=== PATIENT | male | born 1985 | race Caucasian/White ===

== ENCOUNTER 2025-06-24 13:27 | Emergency (ER) | payer OTHER, SELFPAY | END 2025-06-24 16:19 | disposition home or self-care (01) | LOC: ERS 13:27 | DX: B34.9 Viral infection, unspecified (principal); I10 Essential (primary) hypertension; F17.220 Nicotine dependence, chewing tobacco, uncomplicated | CPT/HCPCS: 71046; 87081; 87428; 87430 ==

== ENCOUNTER 2025-06-28 05:27 | Emergency (ER) | payer OTHER ==
[2025-06-28 06:21] LABS: #Basophils 0.04 10x3/uL (0.0-0.2); #Eosinophils 0.41 10x3/uL (0.0-0.7); #Monocytes 0.78 10x3/uL (0.11-0.59); #Neutrophils 3.59 10x3/uL (1.40-6.50); %Basophils 0.6 % (0.0-1.0); %Eosinophils 6.3 % (0.0-10.0); %Lymphocytes 24.9 % (21.0-51.0); %Monocytes 12.1 % (0.0-10.0); %Neutrophils 55.6 % (42.0-75.0); Hematocrit 43.0 % (42.0-52.0); Hemoglobin 15.4 g/dL (14.0-18.0); Mean Corpuscular Hemoglobin 31.0 pg (27.0-31.0); Mean Corpuscular Volume 86.7 fL (78.0-98.0); Platelet Count 212 10x3/uL (130-400); Red Blood Cell (RBC) Count 4.96 mill/uL (4.70-6.10); White Blood Cell (WBC) Count 6.46 10x3/uL (4.8-10.8)
[2025-06-28 06:40] LABS: ALT (SGPT) 159 U/L (Less than 45); AST (SGOT) 93 U/L (11-34); Albumin 4.4 g/dL (3.1-4.5); Alkaline Phosphatase 104 U/L (40-110); Anion Gap 15 mmol/L (10-20); BUN (Urea Nitrogen) 12 mg/dL (8.9-20.6); Bilirubin, Total 0.4 mg/dL (0.3-1.2); Calc. Creatinine Clearance 0 mL/min (70-130); Calcium 10.5 mg/dL (7.8-10.44); Carbon Dioxide 24 mmol/L (22-29); Chloride 101 mmol/L (98-107); Globulin 3.6 g/dL (2.4-3.5); Glucose 109 mg/dL (70-105); Potassium 3.8 mmol/L (3.5-5.1); Sodium 136 mmol/L (136-145)
== END 2025-06-28 08:38 | disposition home or self-care (01) ==
LOC: ERS 05:27
DX: R03.0 Elevated blood-pressure reading, without diagnosis of hypertension (principal); F41.9 Anxiety disorder, unspecified; F17.220 Nicotine dependence, chewing tobacco, uncomplicated
CPT/HCPCS: 71045; 80053; 84484; 85025; 93005